=== PATIENT | male | born 1960 | race Caucasian/White ===

== ENCOUNTER 2019-04-03 09:08 | Outpatient (CLI) | payer BC, SELFPAY ==
--- NOTE | 2019-04-03 08:38 | DI.RAD_ITS ---
SYMPTOM/DIAGNOSIS; RIGHT KNEE PJAIN RIGHT KNEE: 04/03 Three views were obtained. No bony or soft tissue abnormality seen.
== END 2019-04-03 09:28 ==
PROVIDERS: PCP Internal Medicine; Visit Provider Physician Assistant
DX: M25.561 Pain in right knee (principal)
CPT/HCPCS: 73562

== ENCOUNTER 2022-07-10 07:42 | Day surgery (SDC) | payer BC, SELFPAY ==
[2022-07-10 07:45] VITALS: BP 110/84; PULSE 62; RESP 16; TEMP 36.6; O2SAT 100
[2022-07-10] MEDS: Lactated Ringers 1,000 ML 80 ML IV (08:17)
--- NOTE | 2022-07-10 09:06 | W.ANESPRE ---
General Info Date of Service Date Performed: 07/10/22 Height: 5 ft 10 in Weight: 72.8 kg Body Mass Index (BMI): 23.0 Surgical Procedure: Operation Date: 07/10/22 09:35 Proposed Procedure Side Surgeon p Colonoscopy Romina Sykes MD Meds Allergies and Home Medications Allergies Allergy/AdvReac Type Severity Reaction Status Date / Time No Known Allergies Allergy Unverified 07/10/22 08:10 Home Medication Medication Instructions Recorded bisacodyl 5 mg tablet,delayed 5 mg PO ONCE #4 tabs 06/09/22 release (Dulcolax (bisacodyl)) polyethylene glycol 3350 17 17 g PO ONCE #238 grams 06/09/22 gram/dose oral powder Current Visit Medications: Current Medications Generic Name Dose Route Start Last Admin Trade Name Freq PRN Reason Stop Dose Admin Ringer's Solution 1,000 mls @ 80 mls/hr 07/10/22 06:00 07/10/22 08:17 IV 07/10/22 23:59 80 mls/hr INFUSION EDGARD Administration IV Miscellaneous Supplies 1 each 07/10/22 06:00 Iv Access IV 07/10/22 23:59 DIRECTED EDGARD Sodium Chloride 0 ml 07/10/22 06:00 Normal Saline Flush 10 Ml Syr IV 07/10/22 23:59 PRN PRN Sodium Chloride 0 ml 07/10/22 06:00 Normal Saline 10 Ml Vial IJ 07/10/22 23:59 DIRECTED PRN Sterile Water 0 ml 07/10/22 06:00 Water,Injection,Sterile 10 Ml Vial IJ 07/10/22 23:59 DIRECTED PRN PFSH Active Problems Active Problems: Problem Status Onset Code Screening for colon cancer Z12.11 Hyperplastic colon polyp K63.5 Medical History Medical History Hyperlipidemia Internal derangement of right knee (02/2019) Surgical History Surgical History H/O arthroscopic knee surgery History of surgery surgery on esphagus to repair sphincter as youth S/P colonoscopy Tobacco Smoking/Tobacco Use Status: Never Alcohol Alcohol Intake: current Alcohol intake frequency: a few times a week Substance Use Substance use: Never Vital Signs and Lab Results Vital Signs Most Recent Vital Signs in EMR: Most Recent Vital Signs Temp Pulse Resp BP Pulse Ox 36.6 C 62 16 110/84 100 07/10/22 07:45 07/10/22 07:45 07/10/22 07:45 07/10/22 07:45 07/10/22 07:45 Lab Results Blood Type / Crossmatch: No Data to Display Complete Blood Count: No Data to Display Complete Metabolic Panel: No Data to Display Liver Function Panel: No Data to Display Coagulation Panel: No Data to Display Cardiac Panel: No Data to Display Arterial Blood Gas: No Data to Display Venous Blood Gas: No Data to Display Pancreas Panel: No Data to Display Thyroid Panel: No Data to Display Infectious Disease: No Data to Display Blood Cultures: No Data to Display Toxicology Panel: No Data to Display Anesthesia Assessment and Plan Anesthesia History Personal History: No History of Anesthesia Complications Family History: No Family History of Anesthesia Complications Exercise Tolerance Exercise Tolerance: Metabolic Equivalents>4 Pertinent Negatives Pertinent Negatives: No Symptoms of GERD, No Major Cardiovascular Symptoms or Complaints and No Major Pulmonary Symptoms or Complaints Cardiac & Pulmonary Exam Cardiac Exam: Normal S1/S2 Heart Sounds Pulmonary Exam: Clear Bilateral Breath Sounds Implantable Cardiac Device Does patient have a Pacemaker or an ICD?: No Airway Exam Known Difficult Airway: No Mallampati Class: 1 Mouth Opening: Normal (> 3cm) Thyromental Distance: Greater than 3 cm Neck Range of Motion: Full ROM Neck Circumference: Normal Teeth Condition: Normal Dentition ASA Classification ASA Score: ASA 2 Emergency Case?: No NPO Status NPO Status: NPO Clears >2 hours, Solids >8 hours Anesthesia Plan Resuscitation Status: Full Code Anesthesia Technique: General Anesthesia Airway Planned: Natural Airway Monitors Used: Standard Monitors
[2022-07-10 09:08] VITALS: BMI 23.0
--- NOTE | 2022-07-10 09:25 | W.PREOPHP ---
Assessment and Plan Assessment and plan (1) Screening for colon cancer: Status: Acute Assessment and plan: The patient? is a pleasant 61 -year-old male who is here to discuss another screening colonoscopy. ? His last colonoscopy was 10 years ago.? He denies any changes in bowel habits, melena, hematochezia, unintentional weight loss or family history of colon cancer.? The procedure and risks were discussed.? The prep was reviewed in detail.? Risks, benefits and complications have been reviewed. Complications include but are not limited to bleeding, pain, perforation, missed small lesion/polyp, sore throat, aspiration and adverse reaction to the medications. Questions were entertained and answered to their satisfaction and they wished to proceed. No guarantees were given or implied. Medications to be stopped: none Anesthesia: general (without airway) Previous surgical intolerances: No Previous surgical complications: No Pulmonary risk factors: none PFT's: None Planned procedure: Yes Sleep apnea risks: Yes Can climb one flight of stairs (12-13 steps) in less than 30 seconds without stopping and without symptoms: Yes The surgery proposed for this patient is: Low risk Active cardiac conditions: None ECHO: None Stress Test: None Active risk factors: none ASA (acetylsalicylic acid): not used Beta blockers: Yes Proceed with colonoscopy under sedation History of Present Illness Narrative: ?Mr. Wang is a pleasant 61-year-old gentleman who is here today to discuss another colonoscopy.? His last colonoscopy was 10 years ago in [place].? He did have a sessile polyp.? He did bring the report with him.? There were no complications at the time of his procedure.? He denies any changes in bowel habits, melena, hematochezia, abdominal pain or unintentional weight loss.? He does not have a family history of colon cancer.? He is otherwise a very healthy and active gentleman.? He denies any chest pain or shortness of breath with activity. There have been no changes in his health since I last saw him Review of Systems All systems reviewed & are unremarkable except as noted in HPI and below PFSH All Active Problems Screening for colon cancer (Acute) Hyperplastic colon polyp (Acute) Medical History Hyperlipidemia Internal derangement of right knee (02/2019) Surgical History H/O arthroscopic knee surgery History of surgery surgery on esphagus to repair sphincter as youth S/P colonoscopy Social History Smoking/Tobacco Use Status: Never Smoking risk assessment performed?: Yes Alcohol Intake: current Alcohol Intake frequency: a few times a week Drug use: Never Do you feel safe at home: Yes Do you feel safe in your relationship?: Yes Meds Allergies and Home Medications Allergies Allergy/AdvReac Type Severity Reaction Status Date / Time No Known Allergies Allergy Unverified 07/10/22 08:10 Home Medications Medication Instructions Recorded Confirmed Type bisacodyl 5 mg tablet,delayed 5 mg PO ONCE #4 tabs 06/09/22 06/09/22 Rx release (Dulcolax (bisacodyl)) polyethylene glycol 3350 17 17 g PO ONCE #238 grams 06/09/22 06/09/22 Rx gram/dose oral powder Exam HENMT Head: normocephalic and atraumatic Resp Effort & Inspection: normal respiratory effort Auscultation: clear to auscultation bilaterally Cardio Rate: regular rate Rhythm: regular rhythm Heart Sounds: gallop, murmur and rub GI Inspection: normal to inspection Palpation: soft Results Last Vital Signs Temp 97.9 F 07/10/22 07:45 Pulse 62 07/10/22 07:45 Resp 16 07/10/22 07:45 BP 110/84 07/10/22 07:45 Pulse Ox 100 07/10/22 07:45
--- NOTE | 2022-07-10 09:29 | PDOC.DSDIS_ITS ---
Date of service: 07/10/22 Time of Service: 10:12 Discharge Plan Disposition Patient Disposition: HOME Condition: Good Discharge Details Reason For Visit: colonoscopy Attending Provider: Romina Sykes Primary Care Provider: MARIO ALBERTO COFFMAN Home Meds and New Rx's Prescriptions: Discontinued bisacodyl [Dulcolax (bisacodyl)] 5 mg tablet,delayed release (DR/EC) 5 mg PO ONCE Qty: 4 0RF Rx Instructions: Take according to provider's instructions for colonoscopy prep. polyethylene glycol 3350 17 gram/dose powder 17 g PO ONCE Qty: 238 0RF Rx Instructions: To be taken as directed by prescriber's office for colonoscopy prep. Discharge Instructions Additional Instructions: Findings: one polyp Follow up: most likely 5 years Please call if you develop: fevers >101.5 Nausea or Vomiting Abdominal pain that is not transient Rectal bleeding that is more then a tbsp A hard abdomen and inability to pass gas DAY SURGERY UNIT POST ENDOSCOPY INSTRUCTIONS Instructions for everyone who is given Anesthesia: For your safety, please do the following for the next 24 Hours: a. Do not drive or operate dangerous equipment b. Do not drink alcohol beverages or use any recreational drugs for the first 24 hours or while taking pain medications. The medications in your body may have a reaction that can be dangerous. c. Do not make any important decisions or sign any important papers 1. Generally there are no restrictions on your activity after a day or so has gone by, but you may feel a bit fatigued for a few days. 2. After you arrive home you may have a light meal and return to a normal diet as you can tolerate it without feeling sick to your stomach. 3. After surgery, you may feel pain or discomfort. This should be only trans ient, but if it persists please contact your doctor. 4. If there are any questions regarding the findings of your procedure, please feel free to contact your doctor. 6. If you are unable to contact your doctor with a problem, contact the hospital at [phone]. 7. Continue all your regular medications unless directed otherwise. I understand the above instructions and have no questions. Signature of Patient or Responsible Adult Escort Date/Time Name of Responsible Adult Escort Signature of Nurse Date/Time Activity:: Activity as Tolerated Activity:: Activity as Tolerated Equipment/Supplies:: No Equipment Needed Diet:: As Tolerated DS: Diagnosis Discharge Diagnosis (1) Screening for colon cancer: Status: Acute
--- NOTE | 2022-07-10 09:29 | W.COLOREPORT ---
Date of service: 07/10/22 Time of Service: :39 Colonoscopy Report Date of procedure: 07/10/22 Pre-op diagnosis general: Screening and Hx of polyps Post-op diagnosis procedure note: same (and polyp) Procedure: Colonoscopy with polypectomy Surgeon: Romina Sykes Anesthesia Type: General:No Airway Estimated blood loss (mL): 3 Pathology: other (rectal polyp) Complications: None Disposition: same day Indications: The patient? is a pleasant 61 -year-old male who is here to discuss another screening colonoscopy. ? His last colonoscopy was 10 years ago.? He denies any changes in bowel habits, melena, hematochezia, unintentional weight loss or family history of colon cancer.? The procedure and risks were discussed.? The prep was reviewed in detail.? Risks, benefits and complications have been reviewed. Complications include but are not limited to bleeding, pain, perforation, missed small lesion/polyp, sore throat, aspiration and adverse reaction to the medications. Questions were entertained and answered to their satisfaction and they wished to proceed. No guarantees were given or implied. Prep: Miralax/Dulcolax Procedure Start Time: 39 Procedure End Time: 10:02 Retraction Time: 14 minutes Findings: one small rectal polyp Procedure Description: After informed consent was obtained the patient was taken to the procedure room and placed in a left decubitous position. Monitors were applied and a time out was done. The patients name, date of , procedure, allergies to medications and metal in their body was reviewed. The patient was then sedated. Once sedated and comfortable a rectal exam was done. External exam was normal. Internal exam revealed a normal sphincter tone and no palpable masses. The prostate felt smooth but enlarged. The scope was then introduced and retro-flexed. No internal hemorrhoids, polyps or masses were identified on retro-flexion. The scope was then advanced to the cecum [withoutdifficulty. The ileocecal vlave and appendiceal orifice were identified. The prep was adeuqtae. The scope was then slowly retracted over 14 minutes back into the rectum. Polyps were removed with cold forceps in the rectum. There was no diverticulosis noted. The scope was removed and the patient was woken up and taken back to Same day surgery in stable condition. The patient tolerated the procedure well and there were no immediate complications.
--- NOTE | 2022-07-10 10:01 | BOWEL_PTH ---
PATIENT: Kranthi Wang LOC: [facility] U#:[id number] AGE/SX: 61/M ROOM: RE07/10/[address]: Romina Sykes MD : 1960 BED: DIS: 07/10/2022 SPEC #: [id number] RECD: 07/10/22 13:17 STATUS: SARAH REQ #: [id number] BRUCE: 07/10/22 10:[address]: Romina Sykes DEPT: Surgical Specimen RECD BY: Carmen Delatorre ENTERED: 07/10/22 13:18 SP TYPE: Bowel OTHR DR: MARIO ALBERTO COFFMAN, [place]ANN[place] Tissues: 1 - BIOPSY BOWEL Procedures: GROSS AND MICRO LEVEL 4 Comments: [id number]
[2022-07-10 10:04] VITALS: BP 106/76; PULSE 70; RESP 18; TEMP 36.2; O2SAT 95
[2022-07-10 10:33] VITALS: BP 113/80; PULSE 61; RESP 18; TEMP 36.5; O2SAT 99
--- NOTE | 2022-07-10 11:41 | W.ANESPOSTOP ---
Postoperative Evaluation Date, Time and Location Date Performed: 07/10/22 Time Performed: 10:40 Patient Location: Day Surgery Unit Vital Signs Most Recent Imported Vital Signs: Most Recent Vital Signs Temp Pulse Resp BP Pulse Ox 36.5 C 61 18 113/80 99 07/10/22 10:33 07/10/22 10:33 07/10/22 10:33 07/10/22 10:33 07/10/22 10:33 Assessment Mental Status: Awake (Alert & Oriented to Patient Baseline) Airway and Respiratory Function: Patent airway with normal (patient baseline) respiratory exam Cardiovascular Function: Hemodynamically Stable Hydration Status: Adequately Hydrated Nausea & Vomiting: No Nausea or Vomiting Pain: Pt. Denies Any Pain Peripheral Nerve Block: Patient did not receive a nerve block
== END 2022-07-10 10:59 | disposition home or self-care (01) ==
PROVIDERS: PCP Nurse Practitioner Family; Visit Provider Surgery
PROC: 0DJD8ZZ Inspection of Lower Intestinal Tract, Via Natural or Artificial Opening Endoscopic (ICD-10-PCS; CPT 45378; principal; 2022-07-10 09:30)
DX: Z12.11 Encounter for screening for malignant neoplasm of colon (principal); K62.1 Rectal polyp; Z86.010 Personal history of colon polyps
CPT/HCPCS: 45380; 88305

== ENCOUNTER 2023-05-11 19:14 | Outpatient (REF) | payer BC, SELFPAY ==
[2023-05-11 17:45] LABS: ALT 28 U/L (16-63); AST 28 U/L (15-37); Albumin 3.8 g/dL (3.4-5.0); Alkaline Phosphatase 72 U/L (46-116); Anion Gap 9.5 mmol/L (3-11); BUN 12 mg/dL (7-18); Bilirubin, Total 0.7 mg/dL (0.2-1.0); CO2 26.5 mmol/L (21.0-32.0); Calcium 9.5 mg/dL (8.5-10.1); Calculated LDL 151 mg/dL (<100); Chloride 102 mmol/L (98-107); Cholesterol 226 mg/dL (<200); Estimated GFR 84.05 (mL/min/1.73m2); Glucose 100 mg/dL (74-106); HDL Cholesterol 61 mg/dL (40-60); Potassium 4.6 mmol/L (3.5-5.1); Sodium 138 mmol/L (136-145); Total Protein 7.5 g/dL (6.4-8.2); Triglyceride 74 mg/dL (<150)
[2023-05-12 19:18] LABS: PSA, Screening 0.6 ng/mL (<=4.5)
== END 2023-05-11 19:15 | disposition home or self-care (01) ==
LOC: NCHCN 19:14
PROVIDERS: PCP Nurse Practitioner Family; Visit Provider Nurse Practitioner Family
DX: Z00.00 Encounter for general adult medical examination without abnormal findings (principal); E78.5 Hyperlipidemia, unspecified; Z13.1 Encounter for screening for diabetes mellitus; Z12.5 Encounter for screening for malignant neoplasm of prostate
CPT/HCPCS: 80053; 80061; 84153

== ENCOUNTER 2024-05-18 12:34 | Outpatient (REF) | payer MEDICARE, SELFPAY ==
[2024-05-18 16:18] LABS: ALT 37 U/L (16-63); AST 34 U/L (15-37); Albumin 3.9 g/dL (3.4-5.0); Alkaline Phosphatase 73 U/L (46-116); Anion Gap 10.2 mmol/L (3-11); BUN 14 mg/dL (7-18); Bilirubin, Total 1.32 mg/dL (0.2-1.0); CO2 24.8 mmol/L (21.0-32.0); Calcium 8.9 mg/dL (8.5-10.1); Calculated LDL 115 mg/dL (<100); Chloride 103 mmol/L (98-107); Cholesterol 187 mg/dL (<200); Glucose 89 mg/dL (74-106); HDL Cholesterol 60 mg/dL (40-60); Potassium 4.1 mmol/L (3.5-5.1); Sodium 138 mmol/L (136-145); Total Protein 7.3 g/dL (6.4-8.2); Triglyceride 62 mg/dL (<150)
[2024-05-18 16:25] LABS: CREATININE 0.9 mg/dL (0.70-1.30); Estimated GFR 94.78 (mL/min/1.73m2)
[2024-05-22 10:22] LABS: HIV-1/2 Ag & Ab Screen Negative (Negative)
[2024-05-22 10:35] LABS: Hepatitis C Ab w Rflx HCV PCR Negative (Negative)
== END 2024-05-18 12:35 | disposition home or self-care (01) ==
LOC: NCHCN 12:34
PROVIDERS: PCP Nurse Practitioner Family; Visit Provider Nurse Practitioner Family
DX: Z00.00 Encounter for general adult medical examination without abnormal findings (principal)
CPT/HCPCS: 80053; 80061; 86803; 87389

== ENCOUNTER 2024-05-26 00:50 | Outpatient (CLI) | payer MEDICARE, SELFPAY ==
--- NOTE | 2024-05-26 | DI.US_ITS ---
Exam(s) US AAA SCREENING EXAM: US AAA SCREENING CLINICAL HISTORY: SCREENING AAA, FAMILY HX AAA, Z82.49 COMPARISON: No exams were available for comparison FINDINGS: Abdominal Aorta: Proximal: 2.2 x 2.2 cm Mid: 1.7 x 1.8 cm Distal: 2.0 x 1.9 cm Iliac's: Right: 1.0 x 1.0 cm Left: 1.3 x 1.3 cm No significant atherosclerotic disease is seen. IMPRESSION: No evidence of abdominal aortic aneurysm. DATA REPOSITORY:
== END 2024-05-26 01:10 ==
PROVIDERS: PCP Nurse Practitioner Family; Visit Provider Nurse Practitioner Family
DX: Z13.6 Encounter for screening for cardiovascular disorders (principal); Z82.49 Family history of ischemic heart disease and other diseases of the circulatory system
CPT/HCPCS: 76706